=== PATIENT | male | born 1945 | race Caucasian/White ===

== ENCOUNTER 2023-03-21 12:00 | Emergency (ER) | payer MEDICARE ==
[~2023-03-21] VITALS: Ht 180.3 cm; Wt 66.1 kg
[2023-03-21 13:17] LABS: Source, Urine Clean Catch
[2023-03-21 13:22] LABS: Appearance, Urine Clear (Clear); Bilirubin, Urine Neg (Neg); Blood, Urine 4+ (Neg); Glucose Qualitative, Urine Neg (Neg); Ketones, Urine Neg (Neg); Leukocyte Esterase, Urine 1+ (Neg); Nitrite, Urine Neg (Neg); Protein, Urine 1+ (Neg); Specific Gravity, Urine 1.015 (1.003-1.022); Urobilinogen, Urine NORM (Normal)
[2023-03-21 13:35] LABS: BASOPHILS ABSOLUTE AUTO 0.05 K/mm3 (0.00-0.23); BASOPHILS PERCENT AUTO 2 % (0-2); EOSINOPHILS ABSOLUTE AUTO 0.09 K/mm3 (0.00-0.68); EOSINOPHILS PERCENT AUTO 3 % (0-6); Hematocrit 36.1 % (37.0-53.0); Hemoglobin 12.7 g/dL (13.5-17.5); IMMATURE GRAN ABSOLUTE AUTO 0.01 K/mm3 (0.00-0.10); IMMATURE GRAN PERCENT AUTO 0 % (0-1); LYMPHOCYTES PERCENT AUTO 13 % (21-46); MONOCYTES ABSOLUTE AUTO 0.38 K/mm3 (0.16-1.47); MONOCYTES PERCENT AUTO 13 % (4-13); Mean Corpuscular HGB 30.5 pg (26.0-34.0); Mean Corpuscular HGB Conc 35.2 g/dL (31.5-36.5); Mean Corpuscular Volume 87 fL (80-100); Mean Platelet Volume 8.6 fL (9.1-12.4); NEUTROPHILS PERCENT AUTO 69 % (41-73); Platelet Count 187 K/mm3 (150-400); RDW Coefficient Variation 15.2 % (11.7-14.2); RDW Standard Deviation 47.2 fL (35.1-46.3); Red Blood Cell Count 4.16 M/mm3 (4.30-5.90); White Blood Cell Count 3.03 K/mm3 (4.00-11.30)
[2023-03-21 13:40] LABS: Color, Urine Pale Yellow (P-Yellow)
[2023-03-21 13:42] LABS: Bacteria Few /hpf; Red Blood Cells, Urine 0-2 /hpf (0-2); Squamous Epithelial Cells Rare /hpf (Few)
[2023-03-21 13:52] LABS: Bun/Creatinine Ratio 9.7 (12.0-20.0); Calcium, Blood 8.9 mg/dL (8.5-10.1); Creatinine, Blood 0.83 mg/dL (0.60-1.20); Potassium, Blood 4.3 mmol/L (3.5-5.5)
[2023-03-21 14:00] VITALS: BP 184/88
== END 2023-03-21 14:23 | disposition home or self-care (01) ==
LOC: ER 12:00
PROVIDERS: Emergency Medicine
DX: N30.40 Irradiation cystitis without hematuria (principal)
CPT/HCPCS: 51798; 76770; 80048; 81001; 85025; 99284-25; A9270

== ENCOUNTER 2023-03-23 15:01 | Emergency (ER) | payer MEDICARE ==
[~2023-03-23] VITALS: Ht 180.3 cm; Wt 69.8 kg
[2023-03-23 15:55] LABS: Source, Urine Clean Catch
[2023-03-23 16:14] LABS: Appearance, Urine Clear (Clear); Bilirubin, Urine Neg (Neg); Blood, Urine 4+ (Neg); Color, Urine Yellow (P-Yellow); Glucose Qualitative, Urine Neg (Neg); Ketones, Urine Neg (Neg); Leukocyte Esterase, Urine Neg (Neg); Nitrite, Urine Neg (Neg); Protein, Urine 1+ (Neg); Urobilinogen, Urine NORM (Normal)
[2023-03-23 16:38] LABS: White Blood Cells, Urine 0-2 /hpf (0-5)
[2023-03-23 16:39] LABS: Bacteria Rare /hpf; Red Blood Cells, Urine 25-50 /hpf (0-2); Squamous Epithelial Cells Not Seen /hpf (Few)
[2023-03-23] MEDS ORDERED: CENTRUM SILVER1 EAC2 (16:59)
[2023-03-23] MEDS ORDERED: COQ-10100 MG PO (17:00)
[2023-03-23] MEDS ORDERED: CRANBERRY125 MG PO (17:00)
[2023-03-23 17:03] VITALS: BP 126/80
== END 2023-03-23 20:14 | disposition home or self-care (01) ==
LOC: ER 15:01
PROVIDERS: Physician Assistant
DX: R30.0 Dysuria (principal); R39.198 Other difficulties with micturition; Z85.51 Personal history of malignant neoplasm of bladder
CPT/HCPCS: 81001; 99283